=== PATIENT | female | born 1980 | race Caucasian/White ===

== ENCOUNTER → 2023-12-31 06:16 | Day surgery (SDC) | payer BC, SELFPAY | LOC: GI 06:16 | PROVIDERS: ATTENDING PHYSICIAN Internal Medicine | DX: Z12.11 Encounter for screening for malignant neoplasm of colon (principal); D12.3 Benign neoplasm of transverse colon; D12.5 Benign neoplasm of sigmoid colon; D12.7 Benign neoplasm of rectosigmoid junction; Q43.8 Other specified congenital malformations of intestine; K56.2 Volvulus | CPT/HCPCS: 45385; 45380; 88305 ==

== ENCOUNTER → 2024-08-29 14:57 | Outpatient (REF) | payer BC, SELFPAY | LOC: HWRAD 14:57 | PROVIDERS: ATTENDING PHYSICIAN Family Medicine | DX: R22.30 Localized swelling, mass and lump, unspecified upper limb (principal); R22.1 Localized swelling, mass and lump, neck | CPT/HCPCS: 76536; 76882 ==